=== PATIENT | male | born 1975 | race Caucasian/White ===

== ENCOUNTER 2017-05-02 13:14 | Emergency (ER) | payer MEDICAID | END 2017-05-02 13:43 | disposition home or self-care (01) | LOC: E/R 13:14 | DX: J11.1 Influenza due to unidentified influenza virus with other respiratory manifestations (principal); Z79.82 Long term (current) use of aspirin | CPT/HCPCS: 99284; Z7502 ==

== ENCOUNTER 2017-06-20 22:35 | Emergency (ER) | payer MEDICAID ==
[2017-06-21] MEDS: morphine 4 MG/ML VIAL IV (01:23)
[2017-06-21] MEDS: SOD CHLORIDE 0.9% 1,000 ML IV (01:23)
[2017-06-21] MEDS: ONDANSETRON 4 MG INJ IV (01:23)
[2017-06-21 02:22] LABS: ADD MAN DIFF? NO
[2017-06-21] MEDS: IOHEXOL 300MG/ML 150 ML BTL (02:22)
[2017-06-21] MEDS: SOD CHLORIDE 0.9% 100 ML (02:22)
[2017-06-21 02:23] LABS: WHITE BLOOD COUNT 14.1 10^3/ul (4.8-10.8)
[2017-06-21 02:23] LABS: BASOPHIL # 0.1 10^3/ul (0.0-0.1); BASOPHILS % 0.6 % (0.0-2.0); EOSINOPHILS # 0.3 10^3/ul (0.0-0.5); EOSINOPHILS % 2.1 % (0.0-7.0); HEMATOCRIT 42.9 % (42.0-52.0); HEMOGLOBIN 14.7 g/dl (14.0-18.0); LYMPHOCYTES # 3.5 10^3/ul (0.8-2.9); LYMPHOCYTES % 24.4 % (15.0-51.0); MEAN CORPUSCULAR HEMOGLOBIN 27.5 pg (29.0-33.0); MEAN CORPUSCULAR HGB CONC 34.3 g/dl (32.0-37.0); MEAN CORPUSCULAR VOLUME 80.3 fl (82.0-101.0); MEAN PLATELET VOLUME 10.7 fl (7.4-10.4); MONOCYTE # 0.8 10^3/ul (0.3-0.9); MONOCYTES % 5.9 % (0.0-11.0); NEUTROPHIL # 9.4 10^3/ul (1.6-7.5); NEUTROPHILS % 66.2 % (39.0-77.0); PLATELET COUNT 354 10^3/UL (140-415); RED BLOOD COUNT 5.34 10^6/ul (4.70-6.10); RED CELL DISTRIBUTION WIDTH 12.9 % (11.5-14.5)
[2017-06-21 02:38] LABS: ADD UMIC YES; UR ASCORBIC ACID NEGATIVE (NEGATIVE); UR BILIRUBIN (Dip) NEGATIVE (NEGATIVE); UR BLOOD (Dip) 1+ mg/dL (NEGATIVE); UR CLARITY CLEAR (CLEAR); UR COLOR YELLOW (YELLOW); UR GLUCOSE (Dip) NEGATIVE (NEGATIVE); UR KETONES (Dip) NEGATIVE (NEGATIVE); UR LEUKOCYTE ESTERASE (Dip) NEGATIVE Leu/ul (NEGATIVE); UR MUCUS FEW /HPF (NONE SEEN); UR NITRITE (Dip) NEGATIVE (NEGATIVE); UR RBC 3 /HPF (0-5); UR SPECIFIC GRAVITY (Dip) 1.026 (1.003-1.030); UR TOTAL PROTEIN (Dip) NEGATIVE (NEGATIVE); UR UROBILINOGEN (Dip) NEGATIVE (NEGATIVE); UR WBC 1 /HPF (0-5)
[2017-06-21 03:04] LABS: ALANINE AMINOTRANSFERASE 34 IU/L (13-69); ALBUMIN 4.7 g/dl (3.3-4.9); ALKALINE PHOSPHATASE 118 IU/L (42-121); ANION GAP 19 (8-16); ASPARTATE AMINO TRANSFERASE 29 IU/L (15-46); BILIRUBIN,INDIRECT 0.1 mg/dl (0-1.1); BILIRUBIN,TOTAL 0.1 mg/dl (0.2-1.3); BLOOD UREA NITROGEN 22 mg/dl (7-20); CALCIUM 9.5 mg/dl (8.4-10.2); CARBON DIOXIDE 25 mmol/L (21-31); CHLORIDE 105 mmol/L (97-110); CREATININE 0.68 mg/dl (0.61-1.24); GLUCOSE 101 mg/dl (70-220); LIPASE 83 U/L (23-300); POTASSIUM 3.7 mmol/L (3.5-5.1); SODIUM 145 mmol/L (135-144); TOTAL PROTEIN 8.3 g/dl (6.1-8.1)
[2017-06-21 03:20] LABS: TROPONIN-I < 0.012 ng/ml (0.00-0.12)
== END 2017-06-21 06:09 | disposition home or self-care (01) ==
LOC: FTE 22:35
DX: R10.9 Unspecified abdominal pain (principal); M54.5 Low back pain; Z79.82 Long term (current) use of aspirin
CPT/HCPCS: 36415; 71045; 74177; 80053; 81001; 83690; 84484; 85025; 93005; 96374; 96375; 99285-25

== ENCOUNTER 2018-01-05 12:38 | Emergency (ER) | payer SELFPAY, MEDICAID ==
[2018-01-05 13:03] LABS: ADD MAN DIFF? NO
[2018-01-05 13:07] LABS: WHITE BLOOD COUNT 10.4 10^3/ul (4.8-10.8)
[2018-01-05 13:07] LABS: BASOPHIL # 0.1 10^3/ul (0.0-0.1); BASOPHILS % 0.7 % (0.0-2.0); EOSINOPHILS # 0.2 10^3/ul (0.0-0.5); EOSINOPHILS % 1.4 % (0.0-7.0); HEMATOCRIT 44.4 % (42.0-52.0); HEMOGLOBIN 14.1 g/dl (14.0-18.0); LYMPHOCYTES # 1.8 10^3/ul (0.8-2.9); LYMPHOCYTES % 16.9 % (15.0-51.0); MEAN CORPUSCULAR HEMOGLOBIN 26.6 pg (29.0-33.0); MEAN CORPUSCULAR HGB CONC 31.8 g/dl (32.0-37.0); MEAN CORPUSCULAR VOLUME 83.6 fl (82.0-101.0); MEAN PLATELET VOLUME 10.2 fl (7.4-10.4); MONOCYTE # 0.6 10^3/ul (0.3-0.9); NEUTROPHIL # 7.7 10^3/ul (1.6-7.5); NEUTROPHILS % 73.8 % (39.0-77.0); PLATELET COUNT 292 10^3/UL (140-415); RED BLOOD COUNT 5.31 10^6/ul (4.70-6.10); RED CELL DISTRIBUTION WIDTH 13.4 % (11.5-14.5)
[2018-01-05 13:17] LABS: HEMOGLOBIN A1C 5.9 % (0-5.9)
[2018-01-05 13:22] LABS: INR 0.89; PROTIME 12.1 Sec (11.9-14.9); PT RATIO 0.9
[2018-01-05 13:23] LABS: PARTIAL THROMBOPLASTIN TIME 31.4 Sec (25.0-35.0)
[2018-01-05 13:25] LABS: ANION GAP 11 (8-16); BLOOD UREA NITROGEN 21 mg/dl (7-20); CARBON DIOXIDE 30 mmol/L (21-31); CHLORIDE 106 mmol/L (97-110); CHOL/HDL RATIO 5.2 RATIO; CHOLESTEROL 216 mg/dl (100-200); CREATININE 0.65 mg/dl (0.61-1.24); GLUCOSE 134 mg/dl (70-220); HDL CHOLESTEROL 41 mg/dl (27-67); LDL CHOLESTEROL,CALCULATED 136 mg/dl; POTASSIUM 4.3 mmol/L (3.5-5.1); SODIUM 143 mmol/L (135-144); TRIGLYCERIDES 196 mg/dl (0-149)
[2018-01-05 13:35] LABS: TROPONIN-I < 0.012 ng/ml (0.000-0.120)
[2018-01-05] MEDS: morphine 4 MG/ML VIAL IV (13:57)
[2018-01-05] MEDS: ONDANSETRON 4 MG INJ IV (13:58)
== END 2018-01-05 14:45 | disposition home or self-care (01) ==
LOC: E/R 12:38
DX: R51 Headache (principal); R07.9 Chest pain, unspecified
CPT/HCPCS: 36415; 70450; 71045; 80048; 80061; 83036; 84484; 85025; 85610; 85730; 93005; 96374; 96375; 99285-25

== ENCOUNTER 2018-04-14 20:15 | Emergency (ER) | payer SELFPAY ==
[2018-04-14] MEDS: morphine 4 MG/ML VIAL IV (20:52)
[2018-04-14] MEDS: ONDANSETRON 4 MG INJ IV (20:52)
[2018-04-14] MEDS: CEFAZOLIN 1 GM/50 ML (PMX) 50 ML IVPB (20:53)
[2018-04-14] MEDS: DIPHTH/TET/ACEL PERTUSS (ADULT) 0.5 ML VIAL IM* (20:53)
[2018-04-14] MEDS: SOD CHLORIDE 0.9% 1,000 ML IV (20:54)
[2018-04-14] MEDS: LIDOCAINE 1% (MPF) 5 ML VIAL INJ (21:17)
[2018-04-14] MEDS: LIDOCAINE 1% (MDV) 10 ML INJ INJ (21:17)
[2018-04-14 21:18] LABS: ADD MAN DIFF? NO
[2018-04-14] MEDS: STERILE WATER 1L IRRIG BTL IRR (21:20)
[2018-04-14 21:21] LABS: BASOPHIL # 0.1 10^3/ul (0.0-0.1); BASOPHILS % 0.6 % (0.0-2.0); EOSINOPHILS # 0.2 10^3/ul (0.0-0.5); EOSINOPHILS % 1.7 % (0.0-7.0); HEMATOCRIT 42.1 % (42.0-52.0); HEMOGLOBIN 13.6 g/dl (14.0-18.0); LYMPHOCYTES # 3.3 10^3/ul (0.8-2.9); LYMPHOCYTES % 26.5 % (15.0-51.0); MEAN CORPUSCULAR HEMOGLOBIN 26.5 pg (29.0-33.0); MEAN CORPUSCULAR HGB CONC 32.3 g/dl (32.0-37.0); MEAN CORPUSCULAR VOLUME 81.9 fl (82.0-101.0); MEAN PLATELET VOLUME 10.5 fl (7.4-10.4); MONOCYTE # 0.6 10^3/ul (0.3-0.9); MONOCYTES % 4.8 % (0.0-11.0); NEUTROPHIL # 8.1 10^3/ul (1.6-7.5); NEUTROPHILS % 65.8 % (39.0-77.0); PLATELET COUNT 312 10^3/UL (140-415); RED BLOOD COUNT 5.14 10^6/ul (4.70-6.10); RED CELL DISTRIBUTION WIDTH 13.6 % (11.5-14.5)
[2018-04-14 21:21] LABS: WHITE BLOOD COUNT 12.3 10^3/ul (4.8-10.8)
[2018-04-14 21:40] LABS: ALANINE AMINOTRANSFERASE 20 IU/L (13-69); ALBUMIN 4.2 g/dl (3.3-4.9); ALBUMIN/GLOBULIN RATIO 1.31; ALKALINE PHOSPHATASE 102 IU/L (42-121); ANION GAP 10 (5-13); ASPARTATE AMINO TRANSFERASE 25 IU/L (15-46); BILIRUBIN,INDIRECT 0.2 mg/dl (0-1.1); BILIRUBIN,TOTAL 0.2 mg/dl (0.2-1.3); BLOOD UREA NITROGEN 20 mg/dl (7-20); CALCIUM 8.6 mg/dl (8.4-10.2); CARBON DIOXIDE 27 mmol/L (21-31); CHLORIDE 102 mmol/L (97-110); CREATININE 0.76 mg/dl (0.61-1.24); Estimated GFR > 60 mL/min (>60); GLUCOSE 115 mg/dl (70-220); INR 0.96; POTASSIUM 3.7 mmol/L (3.5-5.1); PROTIME 12.9 Sec (11.9-14.9); SODIUM 139 mmol/L (135-144); TOTAL PROTEIN 7.4 g/dl (6.1-8.1)
[2018-04-14 21:41] LABS: PARTIAL THROMBOPLASTIN TIME 33.2 Sec (23.0-35.0)
== END 2018-04-14 23:27 | disposition home or self-care (01) ==
LOC: E/R 20:15
DX: S62.662B Nondisplaced fracture of distal phalanx of right middle finger, initial encounter for open fracture (principal); M79.641 Pain in right hand; W26.8XXA Contact with other sharp object(s), not elsewhere classified, initial encounter; Y92.9 Unspecified place or not applicable
CPT/HCPCS: 12042; 73130-RT; 80053; 85025; 85610; 85730; 87040; 90471; 90715; 93005; 96374; 96375; 99291-25

== ENCOUNTER 2018-04-17 13:27 | Emergency (ER) | payer SELFPAY | END 2018-04-17 16:16 | disposition home or self-care (01) | LOC: FTE 13:27 | DX: Z48.01 Encounter for change or removal of surgical wound dressing (principal) | CPT/HCPCS: 99281 ==

== ENCOUNTER 2018-08-30 13:36 | Emergency (ER) | payer MEDICAID ==
[2018-08-30] MEDS: ACETAMINOPHEN 325 MG TAB PO (15:44)
[2018-08-30] MEDS: IBUPROFEN 200 MG TAB PO (15:44)
== END 2018-08-30 17:19 | disposition home or self-care (01) ==
LOC: FTE 13:36
DX: G44.309 Post-traumatic headache, unspecified, not intractable (principal)
CPT/HCPCS: 70450; 99284-25